=== PATIENT | male | born 1975 | race Hispanic/Latino ===

== ENCOUNTER 2020-05-08 05:15 | Emergency (ER) | payer SELFPAY ==
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
== END 2020-05-08 07:53 | disposition left against medical advice (07) ==
LOC: ER 05:15
DX: R53.1 Weakness (principal)
CPT/HCPCS: 99281